=== PATIENT | female | born 1940 | race Caucasian/White ===

== ENCOUNTER 2020-08-20 14:01 | Inpatient (IN) | payer OTHER, MEDICARE ==
[~2020-08-20] VITALS: Ht 157.5 cm; Wt 44.6 kg
[~2020-08-20 14:01] MED LIST: AMITIZA 24 MCG24 MC1 PO; CALCITONIN-SAL3.7 ML NASAL; CALCIUM-VITAMI1 EAC1 PO; CELEXA10 MG PO; COLACE100 MG PO; CORTEF5 MG PO; DOXYCYCLINE 10100 MG PO; ENOXAPARIN40 MG/0.1 SUBQ; HYDROCODONE-AP1 EAC6 PO; IPRAT-ALBUT 0.5-3 ML IH; IRON325 PO; KLOR-CON 1010 MEQ PO; LIORESAL 10 MG10 MG PO; LISINOPRIL10 MG PO; MAGOX 400400 MG PO; MILK OF MA2400 MG/10 PO; MIRALAX255 GM PO; MYRBETRIQ50 MG PO; NORVASC10 MG PO; OXYBUTYNIN 5 MG5 M2 PO; PANTOPRAZOLE SO40 M1 PO; PRAVACHOL40 MG PO; PROPRANOLOL 1010 MG PO; REQUIP5 MG PO; VENTOLIN HFA 1818 GM INH; VITAMIN D1000 UNI1 PO; VITAMINC500 PO
[2020-08-20 14:10] VITALS: BP 127/76
[2020-08-20 15:17] LABS: BASOPHILS 0.3 % (0.0-2.0); EOSINOPHILS 2.4 % (0.0-3.0); HEMATOCRIT 29.1 % (37.0-47.0); HEMOGLOBIN 9.6 gm/dL (12.0-15.0); LYMPHOCYTES 17.7 % (24.0-44.0); MCH 27.8 pg (26.0-34.0); MCV 84.3 fL (80.0-100.0); MONOCYTES 8.7 % (1.0-8.0); PLATELET COUNT 266 thou/uL (150-400); POLYS 70.9 % (36.0-66.0); RBC 3.45 mil/uL (4.20-5.00); RDW 18.2 % (10.5-14.5); WBC 8.4 thou/uL (4.0-11.0)
[2020-08-20 15:31] LABS: CALCIUM 8.8 mg/dL (8.5-10.1); CREATININE 0.7 mg/dL (0.6-1.0); POTASSIUM 4.6 mmol/L (3.5-5.1)
[2020-08-20 15:32] LABS: APTT 26.8 Seconds (24.5-32.8); INR 1.1; PROTIME 11.4 Seconds (9.3-11.4)
[2020-08-20 17:25] VITALS: BP 103/54
[2020-08-20 17:29] VITALS: BP 103/64
[2020-08-20 17:37] LABS: % SATURATION 11 % (20-39); IRON 29 ug/dL (50-170); TIBC 268 ug/dL (250-450)
[2020-08-20 18:01] VITALS: BP 152/86
[2020-08-20 18:04] LABS: FOLIC ACID 8.7 ng/mL (8.6-58.9)
--- NOTE | 2020-08-20 19:32 | NUR ---
PT ADMITTED FROM ER ABOUT 1800PM, PT IS A&O X 2 ( PERSON AND PLACE ) , PT CAN FOLLOW COMMANDS, PT STARTS IV NS @80ML/HR , PT IS ON ROOM AIR , PT'S VS ARE STABLE AT THIS TIME, RN HAS REPORTED TO NEXT SHIFT TO FINISH ADMITTED ORDERS AND ASSESSMENT.
[2020-08-20 20:00] VITALS: BP 144/82
[2020-08-20] MEDS ORDERED: CELEXA 20 MG TA20 MG PO ×2 (22:28→22:30)
[2020-08-20] MEDS ORDERED: DEPAKOTE125 MG PO ×2 (22:29→22:31)
[2020-08-20] MEDS ORDERED: GABAPENTIN100 MG PO (22:31)
[2020-08-20] MEDS ORDERED: MYRBETRIQ50 MG PO (22:32)
[2020-08-20] MEDS ORDERED: TRAMADOL 50 MG50 MG PO (22:42)
[2020-08-20] MEDS ORDERED: TRAZODONE HCL50 MG PO ×2 (22:43→22:44)
[2020-08-20] MEDS ORDERED: TYLENOL325 MG PO (22:44)
[2020-08-20 23:56] VITALS: BP 136/88
--- NOTE | 2020-08-21 04:32 | NUR ---
Pt. oriented to person only. Remembered being in the hospital this am after reorientation. Tolerating room air well with no respiratory distress. COVID positive test reported to FOOD AND BEVERAGE MANAGER and dry house operator. Cont. on enhanced precaution , afebrile. Bed alarm on and SCD's in place. Kept NPO per order. Pt. keeps asking for ice cream and pudding and wants to get out of bed. She hollers intermittently. Requested SCD's off this am. Incontinent of bladder x2. External cath in place after cleaning for incontinence. Left message for son to get a consent , no return call received.
[2020-08-21 04:48] VITALS: BP 139/81
[2020-08-21 05:50] LABS: ABSOLUTE NEUTROPHILS 4.8 thou/uL (1.4-8.2); BASOPHILS 0.6 % (0.0-2.0); EOSINOPHILS 3.4 % (0.0-3.0); HEMATOCRIT 31.2 % (37.0-47.0); HEMOGLOBIN 10.3 gm/dL (12.0-15.0); LYMPHOCYTES 22.6 % (24.0-44.0); MCH 27.9 pg (26.0-34.0); MCHC 32.9 g/dL (28.0-37.0); MCV 84.7 fL (80.0-100.0); MONOCYTES 10.4 % (1.0-8.0); PLATELET COUNT 270 thou/uL (150-400); RBC 3.68 mil/uL (4.20-5.00); RDW 18.4 % (10.5-14.5); WBC 7.6 thou/uL (4.0-11.0)
[2020-08-21 05:57] LABS: CALCIUM 8.7 mg/dL (8.5-10.1); CREATININE 0.6 mg/dL (0.6-1.0); MAGNESIUM 1.8 mg/dL (1.8-2.4); POTASSIUM 4.4 mmol/L (3.5-5.1)
[2020-08-21 07:59] VITALS: BP 147/83
--- NOTE | 2020-08-21 11:44 | NUR ---
Contacted [facility], pts usual TF is jevity 1.2 at 60ml/hr nocturnal. This formula not available and closest formula is Jevity 1.5. Run at 50ml/hr x 10 hrs. Also note pt was taking a mech soft po diet prior to admit as well.
--- NOTE | 2020-08-21 13:03 | NUR ---
INITIAL ASSESSMENT: Received consult. WALDEMAR reviewed chart and spoke with nursing and attending physician. Pt was admitted from [facility] due to peg tube malfunction. GI consulted. Pt to have peg tube replaced. Discharge back to [facility] is anticipated for tomorrow. Pt placed in Enhance Isolation due to COVID-19. Pt haad positive COVID test at [facility] on 07/31. WALDEMAR faxed clinical info to [facility] post acute liaison for review. Pt is a LTC resident at [facility] [place] and transferred to [place] when she tested positive for COVID. [facility] is able to accept pt back when medically stable. WALDEMAR left voice message for pt's son, Kalyan. WALDEMAR is following to assist as needed with discharge planning.
[2020-08-21 15:52] VITALS: BP 143/89
--- NOTE | 2020-08-21 16:39 | NUR ---
ASSUMED PATIENT CARE AT 0700. ALERT TO SELF. WENT TO OR AT 1300 GOT NEW PEG TUBE.OFFERED 2L/NC AFTER PEG REPLACEMENT. WILL LEEP MONITOR.
[2020-08-21 17:19] VITALS: BP 142/92
[2020-08-21 20:18] VITALS: BP 145/86
--- NOTE | 2020-08-22 03:46 | NUR ---
Pt. very impulsive and keeps trying to get out of bed. Found sitting in between siderails with IV out. Assisted to lay back down on the bed and frequent reorientation given. Lorazepam given with some help though didn't last long. Pt. keeps hollering stating she wants to get up and wants something to eat and drink. Found peg tube dressing on the floor and external cath on the floor. Kept dry and comfortable. New IV on left FA. Incont. of bladder , external cath replaced. WAREHOUSE SHIPPER notified , prn haldol given as ordered. Tolerating room air well , no respiratory distress.Cont. on enhanced precaution , afebrile. Bed alarm on for safety.
[2020-08-22 05:06] VITALS: BP 158/86
[2020-08-22 07:43] VITALS: BP 162/93
--- NOTE | 2020-08-22 13:43 | NUR ---
Spoke with ST; feels po intake of puree diet with nectar liquids appropriate to be first initial diet and they will continue to assess. If ready to start TF, then jevity 1.5 at 50ml/hr x 10hr nocturnal. Folate needs replacement
--- NOTE | 2020-08-22 14:19 | NUR ---
WALDEMAR reviewed chart and spoke with nursing and attending physician. Pt remains in Enhanced Isolation due to COVID. Pt is afebrile and not requiring O2. Pt had peg tube replaced yesterday. KUB ordered today. WALDEMAR faxed clinical updates to [place] post-acute liaison for review. Pt will return to [facility] when medically stable. WALDEMAR is following to assist as needed with discharge planning
--- NOTE | 2020-08-22 15:20 | P ---
[facility] [place] [address] PROCEDURE REPORT Name: ADAMS BILLINGS Room #: 361-P ADM IN M.R.#: [id number] Admission: 08/20/20 Attend Phys: Roni Sanabria MD Discharge: Date of : 42 Report #: [id number] THIS REPORT FOR: cc: Ck Cuevas MD, Shyam MD McElhinney, Christian C. MD ~ DATE OF SERVICE: 08/21/2020 PROCEDURE PERFORMED: Upper endoscopy with PEG tube placement. HISTORY OF PRESENT ILLNESS: The patient is a 80-year-old female who was evaluated in the Emergency Room yesterday after her PEG tube was dislodged. She is a fairly good historian, although she does have a history of some dementia. Unable to get a hold of family members. She has a history of achalasia and is unsure when the PEG tube was placed. In the Emergency Room yesterday, the PEG tube previous fistula site was already in the process of healing. There was no opening. I explained to the patient we will need to proceed with upper endoscopy and replacement with new PEG tube. COVID test needed to be performed. A KUB was performed, which showed presumed gastric tube balloon still inflated and overlying the stomach, 2.9 x 2.2 cm. Nonobstructive bowel gas pattern was noted. COVID testing was positive. Because of the need for PEG tube and the possibility of the PEG tube balloon being in the patient's stomach, we felt this was necessary to proceed with upper endoscopy for further evaluation and new PEG tube placement today. DESCRIPTION OF PROCEDURE: Although I explained the risks and benefits of the procedure to the patient, those risks including, but not limited to, bleeding, perforation and the risk of sedation and I think she understands these for consent, she does have a history of dementia and, therefore, I consider this an emergent procedure. Again, we tried to reach the son several times without success. 1 gram of Ancef was given prior to the procedure. Sedation was given using a general anesthesia and intubation, as the PEG balloon may still be present in the patient's stomach and would be required to be removed through her mouth potentially. Next, using a standard Olympus upper endoscope, the scope was placed in the patient's mouth and advanced under direct vision through the esophagus, stomach, and into the second portion of the duodenum. The esophagus was somewhat dilated throughout consistent with her history of achalasia. There was no evidence of stricture, no evidence of esophagitis. The GE junction was normal. Upon entering the stomach, the previous PEG tube site was healing well. No evidence of ulceration. This was noted in the midbody of the stomach. The stomach was fully insufflated with air and there was no evidence of the previous PEG tube balloon or portion of the previous PEG tube within the stomach including the fundus, body, or antrum. The pylorus was normal and patent. The duodenal bulb, first and second portion were all normal. I advanced the scope as far as possible into the second to third portion of the duodenum. [facility] [address] [place] [address] PROCEDURE REPORT Name: ADAMS BILLINGS Room #: 361-P ADM IN M.R.#: [id number] Admission: 08/20/20 Attend Phys: Roni Sanabria MD Discharge: Date of : 42 Report #: [id number] evidence of foreign body or previous PEG balloon was noted on exam today. The scope was then brought back up into the patient's stomach and the stomach was again fully insufflated with air. Good transillumination was noted through the anterior abdominal wall. This area was then marked. This area was to the left lateral of the previous PEG fistula. Next, the skin was cleaned with chlorhexidine solution and a sterile drape was put in place. Next, Xylocaine was used as a local anesthetic. Next, a seeker needle was advanced through the anterior abdominal wall into the gastric lumen under direct vision without difficulty. Next, the needle was removed and a small 1 cm transverse incision was made through the skin. Next, a catheter needle was then advanced through the mid portion of the incision again into the gastric lumen under direct vision without difficulty. The needle was removed. The catheter remained in place. A blue guidewire was then inserted through the catheter and this was grasped with a snare through the endoscope and then brought back up through the patient's mouth. Next, a 20-Ivorian PEG tube was then secured to the blue guidewire and, using a pull technique, was put into position without difficulty. Next, the scope was reintroduced into the patient's stomach and the PEG tube bumper was noted to be in good position in the mid body. The scope was then withdrawn and the PEG tube was then secured to the anterior abdominal wall. At this point, the procedure was terminated. The patient tolerated the procedure well. IMPRESSION: 1. Esophageal dilation consistent with history of achalasia. 2. Previous PEG tube fistula site healing well. 3. No evidence of previous PEG tube balloon was noted in the stomach or in the visualized portion of the duodenum today. This may have passed further into the small bowel or the colon. 4. Successful placement of new PEG tube. RECOMMENDATIONS: 1. We will obtain a KUB today to further evaluate if previous broken balloon portion of the PEG tube has passed further into the small bowel or into the colon. 2. Okay to start using PEG tube later today. Thank you for allowing me to participate in her care. Okay to use PEG tube later today if no evidence of bowel distention. Thank you for allowing me to participate in her care. <ELECTRONICALLY SIGNED> By: Benedict Hutchison MD 08/22/20 1520 [id number] [id number] Benedict Hutchison MD /nt
[2020-08-22 15:23] VITALS: BP 144/83
--- NOTE | 2020-08-22 18:32 | NUR ---
ASSUMED PATIENT CARE AT 0700. ALERT. CONFUSED AND AIGITAED, TOLERATED DIET, HAD THREE BMS NO PEG TUBE PART NOTED. BED ALARM ON . WILL KEEP MONITOR.
[2020-08-22 19:24] VITALS: BP 161/85
--- NOTE | 2020-08-22 22:00 | NUR ---
Pt. has been agitated and yelling out constantly off and on since I took over her care at 1915. Prn ativan was given (see emar) which was helpful for a short time. She started to grab at her IV peg feeding tube. Unable to use alternative measures as patient confused and unable to follow instructions. Naila SURESH called and notified and new orders received for bilateral soft wrist restraints. Pt. also trying to get up out of the bed. Resrtaints applied, but patient trying to fight with nurse and hospitality associate when putting them on. Bed alarm is on.
[2020-08-23 04:05] VITALS: BP 155/87
--- NOTE | 2020-08-23 05:04 | NUR ---
Pt. continues to have behavioral problems off and on all during the shift. She will yell out and has been observed trying to throw her legs up onto the siderails. Pt. unable to be redirected. Meds have been given for agitation (see emar) that are helpul short term and then the agitated behavior will resume. Restraints in place and has been checked on every two hours. Peg tube infusing and is patent upon auscultation. Bed alarm is on.
[2020-08-23 08:05] VITALS: BP 143/79
--- NOTE | 2020-08-23 15:04 | NUR ---
SW reviewed chart and spoke with nursing and attending physician. Pt remains in Enhanced Isolation due to COVID. Pt placed in restraints due to pulling at peg tube and lines. WALDEMAR updated [facility] post acute liaison. Pt will need to be out of restraints for 24 hours prior to returning to [facility]. WALDEMAR is following to assist as needed with discharge planning.
[2020-08-23 16:35] VITALS: BP 173/95
--- NOTE | 2020-08-23 19:02 | NUR ---
ASSUMED PATIENT CARE AT 0700. AWAKE. ON RESTRAINT STILL PULLING SHEET AWAY. INFUSED TF DUE TO PATIENT NOT EAT. NO BM NOTED. SLOWLY TOWARDS POC GOALS.
--- NOTE | 2020-08-24 06:02 | NUR ---
Pt. frequently reoriented, restraints dc'd around 2029 . She has not been pulling on any lines except she takes off her gown and throw it on the floor with linens when she's wet. Incontinent of bladder , external cath in place with large amount of urine. Cont. on enhanced precaution , afebrile. Bed alarm on for safety. Tolerating room air well with no respiratory distress. Tolerating tube feeding well. Pt. gets very impulsive and anxious , prn haldol given with some help. No bm this shift.
[2020-08-24 07:48] VITALS: BP 184/114
--- NOTE | 2020-08-24 10:50 | NUR ---
Pt not eating enough to sustain nutrition status, only bites of foods. Change tube feed to 45ml/hr continuous. Needs folate replacement.
--- NOTE | 2020-08-24 15:36 | NUR ---
WALDEMAR reviewed chart and spoke with nursing and attending physician. Pt remains in Enhanced Isolation due to COVID. Pt is afebrile and not requiring O2. Pt is out of restraints. Pt has new peg tube in place. Pt may be ready for discharge back to [facility] over the weekend. WALDEMAR updated [facility] post-acute liaison who confirms they are able to accept pt back if she is ready over the weekend. WALDEMAR left voice message for pt's son, Kalyan, to notify of possible weekend discharge. Finalized discharge orders/summary will need to be faxed when available. Chart will need to be copied. Pt's son, Kalyan, to be notified of discharge. Contact Sia with [facility] to coordinate discharge. WALDEMAR is available to assist as needed with discharge planning. [facility]-- Sia: [phone]
[2020-08-24 16:20] VITALS: BP 175/102
--- NOTE | 2020-08-24 17:37 | NUR ---
ASSUMED PATIENT CARE AT 0700. ALERT CONFUSED PULLING LINES NONE STOP. PUT ALLISON HAND MITTEN ON AT 1230. MASSAGE LEFT ON PATIENT SON CELL PHONE. PATIENT RECEVING CONTIUNE TF. VSS. NO BM TODAY. NOT TOWARDS POC GOALS.
[2020-08-24 19:55] VITALS: BP 138/88
[2020-08-25 04:50] VITALS: BP 158/90
--- NOTE | 2020-08-25 05:23 | NUR ---
PT CARE ASSUMED WITH PT IN BED.PT IS A/O TO SELF.PT APPEARED TO BE IN NO ACUTE DISTRESS.PT IS ACCUCHECK Q6H.PT IS ON TUBE FEEDING VIAL PEG TUBE AT NIGHT AT 50CC/HR WHICH IS THE GOAL RATE.PT IS ON MITTEN RESTRAINTS TO D/C AT 1230 OR RENEW PER POC.PT IS INCONTINENT TO B/B.WILL CONTINUE TO MONITOR PER POC
[2020-08-25 08:34] VITALS: BP 170/99
[2020-08-25 15:24] VITALS: BP 157/102
--- NOTE | 2020-08-25 16:55 | NUR ---
ASSUMED PATIENT CARE AT 0700. AWAKE. REFUSED TO EAT. TF ON CONTIUNE. NO BM. MITTEN OFF AT 1400. SLOWLY TOWARDS POC GOALS.
[2020-08-25 20:15] VITALS: BP 162/96
--- NOTE | 2020-08-26 01:57 | NUR ---
PT PROGRESSING TOWARDS D/C GOALS. RESPIRATIONS UMNLABORED ON RA. VSS. AFEBRILE SATS WNL. MEDICATED FOR AGITATION WITH SCHEDULED SEROQUEL AND PRN HALDOL. PT SLEEPING QUIETLY. ABDOMINAL BINDER ON TO PROTECT PEG- TUBE. KOBAN ON LEFT FA TO PROTECT LEFT FA. BED DOWN. CALL LIGHT IN REACH. BED ALARM ON. RESIDUALS WNL. TF INFUSING WITHOUT DIFFICULTY. NO S/S DISTRESS PRESENTLY.
[2020-08-26 03:19] VITALS: BP 135/86
[2020-08-26 07:47] VITALS: BP 151/94
[2020-08-26 10:00] LABS: CALCIUM 8.9 mg/dL (8.5-10.1); CREATININE 0.7 mg/dL (0.6-1.0); POTASSIUM 3.9 mmol/L (3.5-5.1)
[2020-08-26 11:11] LABS: HEMATOCRIT 32.6 % (37.0-47.0); HEMOGLOBIN 10.7 gm/dL (12.0-15.0); MCH 28.1 pg (26.0-34.0); MCHC 32.8 g/dL (28.0-37.0); MCV 85.6 fL (80.0-100.0); RBC 3.81 mil/uL (4.20-5.00); RDW 19.2 % (10.5-14.5); WBC 8.8 thou/uL (4.0-11.0)
--- NOTE | 2020-08-26 16:13 | NUR ---
ASSUMED PATIENT CARE AT 0700. AWAKE. ONLY A FEW BIT OLE MEAL. TF CONTIUNE. NO BM. WILL DC TO SNF AT 1700
== END 2020-08-26 18:15 | DRG 393 ==
LOC: ER 14:01 → EROBS 17:23 → 3W 17:23
PROVIDERS: Internal Medicine; Nurse Practitioner; ADMIT Internal Medicine; ATTEND Internal Medicine
PROC: 0D20XUZ Change Feeding Device in Upper Intestinal Tract, External Approach (ICD-10-PCS; principal; 2020-08-21)
PROC: 0D758ZZ Dilation of Esophagus, Via Natural or Artificial Opening Endoscopic (ICD-10-PCS; principal; 2020-08-21)
DX: K94.23 Gastrostomy malfunction (principal); U07.1 COVID-19; E87.1 Hypo-osmolality and hyponatremia; F03.91 Unspecified dementia, unspecified severity, with behavioral disturbance; D64.9 Anemia, unspecified; K21.9 Gastro-esophageal reflux disease without esophagitis; K58.9 Irritable bowel syndrome, unspecified; M19.90 Unspecified osteoarthritis, unspecified site; J44.9 Chronic obstructive pulmonary disease, unspecified; I11.0 Hypertensive heart disease with heart failure; Y83.8 Other surgical procedures as the cause of abnormal reaction of the patient, or of later complication, without mention of misadventure at the time of the procedure; F41.9 Anxiety disorder, unspecified; G25.81 Restless legs syndrome; E78.5 Hyperlipidemia, unspecified; F32.9 Major depressive disorder, single episode, unspecified; L98.8 Other specified disorders of the skin and subcutaneous tissue; I50.9 Heart failure, unspecified; K59.00 Constipation, unspecified; K22.0 Achalasia of cardia; Z96.653 Presence of artificial knee joint, bilateral; Y92.89 Other specified places as the place of occurrence of the external cause; Z87.891 Personal history of nicotine dependence; Z85.118 Personal history of other malignant neoplasm of bronchus and lung; Z90.710 Acquired absence of both cervix and uterus; Z90.49 Acquired absence of other specified parts of digestive tract; Z79.899 Other long term (current) drug therapy; Z91.013 Allergy to seafood; Z86.711 Personal history of pulmonary embolism; Z92.21 Personal history of antineoplastic chemotherapy
CPT/HCPCS: 10080